=== PATIENT | male | born 1965 | race Caucasian/White ===

== ENCOUNTER → 2018-05-24 | Outpatient (CLI) | payer OTHER ==
--- NOTE | 2018-05-24 12:31 | PCVCIMAG ---
APPROVED REPORT Study performed: 05/24/2018 09:43:06 EXAM: Comprehensive 2D, Doppler, and color-flow Echocardiogram Patient Location: Echo lab Status: routine BSA: 2.55 HR: 64 bpmBP: 152/92 mmHg Rhythm: NSR Other Information Study Quality: Adequate Risk Factors: Cardiac Risk Factors: HTN Indications Mitral Valve Prolapse Murmur 2D Dimensions LVEF(%): 65.24 (>50%) IVSd: 12.93 (7-11mm) LVDd: 56.57 mm PWd: 12.53 (7-11mm) LVDs: 36.06 (25-40mm) Left Atrium: 49.98 (27-40mm) Aortic Root: 33.72 mm LV Single Plane 4CH: 54.17 % LV Single Plane 2CH: 61.73 %Garcia's LVEF: 57.95 % Biplane EF: 57.9 % Volumes Left Atrial Volume (Systole) Single Plane 4CH: 123.21 mLSingle Plane 2CH: 123.73 mL LA ESV Index: 49.00 mL/m2 Aortic Valve AoV Peak Abner.: 1.44 m/s AO Peak Gr.: 8.30 mmHgLVOT Max P.41 mmHg LVOT Max V: 1.05 m/s Mitral Valve E/A Ratio: 2.6 MV Decel. Time: 261.39 ms MV E Max Abner.: 1.41 m/s MV A Abner.: 0.55 m/s IVRT: 72.66 ms Pulmonary Valve PV Peak Abner.: 0.92 m/sPV Peak Gr.: 3.40 mmHg Pulmonary Vein P Vein S: 0.35 m/sP Vein A: 0.32 m/s P Vein D: 0.51 m/sP Vein A Dur.: 131.5 msec P Vein S/D Ratio: 0.69 Tricuspid Valve TR Peak Abner.: 3.15 m/s TR Peak Gr.: 39.76 mmHg Left Ventricle The left ventricle is normal size. There is normal LV segmental wall motion. Mild concentric left ventricular hypertrophy. Left ventricular systolic function is normal. The left ventricular ejection fraction is within the normal range. LVEF is 55-60%. Grade II - pseudonormal filling dynamics. Right Ventricle The right ventricle is normal size. The right ventricular systolic function is normal. Atria Left atrium is severely dilated. The right atrium size is normal. Aortic Valve The aortic valve is normal in structure. No aortic regurgitation is present. There is no aortic valvular stenosis. Mitral Valve Moderate-severe posterior mitral valve prolapse. Moderate mitral regurgitation. No evidence of mitral valve stenosis. Tricuspid Valve The tricuspid valve is normal in structure. Mild to moderate tricuspid regurgitation with PAP of 47 mmHg. Pulmonic Valve The pulmonary valve is normal in structure. There is no pulmonic valvular regurgitation. Great Vessels The aortic root is normal in size. IVC is normal in size and collapses with >50% inspiration Pericardium There is no pericardial effusion. There is no pleural effusion. <Conclusion> The left ventricle is normal size. LVEF is 55-60%. Left atrium is severely dilated. The aortic valve is normal in structure. Moderate posterior mitral valve prolapse. Moderate mitral regurgitation. The tricuspid valve is normal in structure. Mild to moderate tricuspid regurgitation with PAP of 47 mmHg. The pulmonary valve is normal in structure. There is no pericardial effusion.
== END | disposition home or self-care (01) ==
LOC: PCVCIMAG 15:55
PROVIDERS: ATTEND Internal Medicine
DX: I08.1 Rheumatic disorders of both mitral and tricuspid valves (principal); R01.1 Cardiac murmur, unspecified
CPT/HCPCS: 93306

== ENCOUNTER → 2019-06-06 | Outpatient (CLI) | payer OTHER ==
--- NOTE | 2019-06-06 12:47 | PCVCIMAG ---
APPROVED REPORT Study performed: 06/06/2019 11:20:21 EXAM: Comprehensive 2D, Doppler, and color-flow Echocardiogram Patient Location: Echo lab Room #: [id number]: routine BSA: 2.52 HR: 60 bpmBP: 138/88 mmHg Rhythm: NSR Other Information Study Quality: Fair Risk Factors: Cardiac Risk Factors: Hyperlipidemia Indications Mitral Valve Prolapse Murmur Dyspnea 2D Dimensions IVSd: 11.99 (7-11mm)LVOT Diam: 22.69 (18-24mm) LVDd: 61.72 mm PWd: 11.19 (7-11mm)Ascending Ao: 33.54 (22-36mm) LVDs: 42.96 (25-40mm) Left Atrium: 52.04 (27-40mm) Aortic Root: 25.51 mm LV Single Plane 4CH: 52.39 % LV Single Plane 2CH: 69.17 % Biplane EF: 62.0 % Volumes Left Atrial Volume (Systole) Single Plane 4CH: 83.72 mLSingle Plane 2CH: 110.95 mL Biplane LA Volume: 97.00 mLLA ESV Index: 38.00 mL/m2 Aortic Valve AoV Peak Abner.: 1.34 m/s AO Peak Gr.: 7.15 mmHgLVOT Max P.33 mmHg LVOT Max V: 1.12 m/s OSMIN Vmax: 3.39 cm2 Mitral Valve E/A Ratio: 2.9 MV Decel. Time: 160.28 ms MV E Max Abner.: 1.65 m/s MV A Abner.: 0.57 m/s MV Max Abner.: 4.95 m/s MV Mean Abner.: 3.66 m/s IVRT: 51.90 ms TDI E/Lateral E': 15.00E/Medial E': 15.00 Medial E' Abner.: 0.11 m/s Lateral E' Abner.: 0.11 m/s Pulmonary Valve PV Peak Gr.: 1.13 mmHg Pulmonary Vein P Vein S: 0.67 m/sP Vein A: 0.33 m/s P Vein D: 0.88 m/sP Vein A Dur.: 76.1 msec P Vein S/D Ratio: 0.76 Tricuspid Valve TR Peak Abner.: 3.43 m/s TR Peak Gr.: 47.13 mmHg TV Vmax: 0.57 m/sPA Pressure: 54.00 mmHg Left Ventricle Left ventricle is moderately dilated. There is normal LV segmental wall motion. Mild concentric left ventricular hypertrophy. Left ventricular systolic function is normal. The left ventricular ejection fraction is within the normal range. LVEF is 60-65%. Transmitral Doppler flow pattern suggests restrictive physiology. Right Ventricle The right ventricle is normal size. The right ventricular systolic function is normal. Atria Left atrium is mildly dilated. The right atrium size is normal. Aortic Valve Aortic valve is trileaflet. The aortic valve is normal in structure and function. No aortic regurgitation is present. There is no aortic valvular stenosis. Mitral Valve Mitral valve leaflets open well. Anterior mitral valve leaflet is mildly thickened. Very turbulent flow through the mitral valve .Moderate mitral regurgitation at least- poor color doppler imaging. No evidence of mitral valve stenosis. Moderate prolapse of the posterior mitral valve leaflet. Tricuspid Valve The tricuspid valve is normal in structure. Mild to moderate tricuspid regurgitation with a PA pressure of 54 mmHg Moderate pulmonary hypertension.. Pulmonic Valve The pulmonary valve is normal in structure. There is no pulmonic valvular regurgitation. Great Vessels The aortic root is normal in size. The ascending aorta is normal in size. Aortic arch is normal in caliber. IVC is normal in size and collapses >50% with inspiration. Pericardium There is no pericardial effusion. There is no pleural effusion. <Conclusion> Left ventricle is moderately dilated. LVEF is 60-65%. Left atrium is mildly dilated. Aortic valve is trileaflet. The aortic valve is normal in structure and function. Mitral valve leaflets open well. Anterior mitral valve leaflet is mildly thickened. Very turbulent flow through the mitral valve .Moderate mitral regurgitation at least- poor color doppler imaging. Moderate prolapse of the posterior mitral valve leaflet. The tricuspid valve is normal in structure. Mild to moderate tricuspid regurgitation with a PA pressure of 54 mmHg Moderate pulmonary hypertension.. The pulmonary valve is normal in structure. There is no pericardial effusion.
== END | disposition home or self-care (01) ==
LOC: PCVCIMAG 10:35
PROVIDERS: ATTEND Internal Medicine
DX: I08.3 Combined rheumatic disorders of mitral, aortic and tricuspid valves (principal); I27.20 Pulmonary hypertension, unspecified
CPT/HCPCS: 93306